=== PATIENT | male | born 1985 | race Caucasian/White ===

== ENCOUNTER → 2016-04-28 | Day surgery (SDC) | payer OTHER ==
[2016-04-17 11:42] VITALS: Ht 177.8 cm; Wt 77.3 kg
[~2016-04-28] VITALS: Ht 177.8 cm; Wt 77.3 kg
[~2016-04-28] MED LIST: ATROPINE SULFATE 0.1 MG/ML 5ML SYR IV PRN; BUPIVACAINE 0.5 % 5 MG/1 ML PF 10ML VIAL ONE; CEFAZOLIN 1000MG/55 ML D5W IV SCH; DEXAMETHASONE SOD INJ 4 MG/ML VIAL ONE; EpINEphrine INJ 1MG/ML AMP 1 MG/ML AMP ONE; FENTANYL CITRATE INJ 50 MCG/1 ML 2 ML VIAL IV PRN; FENTANYL CITRATE INJ 50 MCG/1 ML 2 ML VIAL ONE; HYDR-3983 PO; HYDR-5688 PO; HYDROCODONE/ACETAMOPHEN 5/325MG TAB PO PRN; KETOROLAC TROMETHAMINE 30 MG/ML VIAL IV. PRN; KETOROLAC TROMETHAMINE 30 MG/ML VIAL ONE; LABETALOL HCL IV 5 MG/ML 20ML IV ONE; LABETALOL HCL IV 5 MG/ML 20ML IV PRN; LACTATED RINGER'S 1000ML 1,000 ML IV SCH; LIDOCAINE HCL 2% 2 ML VIAL (20MG/ML) ONE; MELO15TA4 PO; MIDAZOLAM HCL 1 MG/ML 2ML VIAL ONE; NRN/300 PO; ONDANSETRON INJ 2 MG/ML 2 ML VIAL IV PRN; ONDANSETRON INJ 2 MG/ML 2 ML VIAL ONE; OXYCODONE/ACETAMINOPHEN 5-325 TAB PO PRN; PROPOFOL IV EMULSION 10 MG/ML 20 ML VIAL IV ONE; ROPIVACAINE 0.5% 5 MG/ML 30 ML VIAL ONE; SODIUM CHLORIDE 0.9% 1000ML 1,000 ML IV SCH
--- NOTE | 2016-04-28 10:15 | History & Physical Bridge - [place] ---
H&P Re-Evaluation Bridge Note: I have examined the patient, reviewed the History & Physical and in the interval since the performance of the History & Physical I have noted the following changes of clinical significance: No changes noted
--- NOTE | 2016-04-28 11:28 | [facility] Post Operative Brief Note ---
Immediate Operative Summary Operative Date Apr 28, 2016. Pre-Operative Diagnosis Medial meniscus tear left knee Post-Operative Diagnosis same as preop Procedure(s) Performed Left Knee Arthroscopy, Partial Medial Meniscectomy, Removal Plica Band Surgeon Dr. Childress Workers' Compensation Mediator Surgeon(s) CHARI Foley Estimated Blood Loss 0ml Findings ABOVE Specimens none per surgeon Anesthesia LMA Complication(s) None Disposition Recovery Room / PACU
--- NOTE | 2016-04-28 11:39 | Discharge Instructions-SurgCtr ---
Discharge Instructions Date of Service Apr 28, 2016. Visit Reason for Visit: Left Knee Medial Meniscus Tear Discharge Discharge Diagnosis / Problem: SAME ABOVE Discharge Goals Goal(s): Decrease discomfort, Improve function Activity Recommendations Activity Limitations: as noted below Lifting Limitations: until after follow-up appointment Exercise/Sports Limitations: until after follow-up appointment Weightbearing Status: Left weightbearing (as tolerated) Anesthesia . Post Anesthesia Instructions: If you have had General Anesthesia or IV Sedation: * Do not drive today. * Resume driving when surgeon permits. * Do not make important decisions or sign legal documents today. * Call surgeon for: 1. Temperature elevations greater than 101 degrees F. 2. Uncontrollable pain. 3. Excessive bleeding. 4. Persistent nausea and vomiting. 5. Medication intolerance (nausea, vomiting or rash). * For nausea and vomiting use only clear liquids such as: tea, soda, bouillon until nausea subsides, then gradually increase diet as tolerated. * If you have any concerns or questions, call your surgeon's office. If physician is unavailable and it is an emergency, call 911 or go to the nearest emergency room. . Instructions / Follow-Up Instructions / Follow-Up MEDICATIONS: * Resume previous medications unless instructed otherwise by your surgeon. * Always take pain medication on a full stomach or with food to avoid upset stomach. * Do not drink alcohol or drive while taking narcotics. * Ibuprofen or Tylenol may be taken if narcotic not needed. SPECIAL CARE INSTRUCTIONS: __ None _X_ Keep extremity elevated and iced x 48 hours; apply ice 20-30 minutes 8-10 times/day. May remove at night. __ Crutches __ May discard when able __ Brace/Post-op shoe __ 24 hrs/day __ Remove at night _X_ Dressing __ Maintain until seen in office, may shower with plastic over site _X_ Remove dressings in 24-48 hours and then may shower _X_ Cover incisions with band-aids after showering __ Do not remove steri-strips Call physician if chills or temperature rises above 102 degrees or pain unrelieved by prescribed pain medications. Office [phone] Diet Recommendations Home Diet: resume previous diet Procedures Procedures Performed: Left Knee Arthroscopy, Partial Medial Meniscectomy, Removal Plica Band Pending Studies Studies pending at discharge: no Medical Emergencies . Who to Call and When: Medical Emergencies: If at any time you feel your situation is an emergency, please call 911 immediately. . Non-Emergent Contact Non-Emergency issues call your: Primary Care Provider . . "Provider Documentation" section prepared by Edson Brennan.
--- NOTE | 2016-04-28 11:46 | Anesthesia Progress Nt - [facility] ---
Anesthesia Post Op Note Date & Time Apr 28, 2016 at 11:46 Vital Signs Pain Intensity: 0 Vital Signs Past 12 Hours Date Time Temp Pulse Resp B/P Pulse Ox O2 Delivery O2 Flow Rate FiO2 04/28/16 09:43 36.4 58 20 119/77 97 Room Air Notes Mental Status: alert / awake / arousable, participated in evaluation Pt Amnestic to Procedure: Yes Nausea / Vomiting: adequately controlled Pain: adequately controlled Airway Patency, RR, SpO2: stable & adequate BP & HR: stable & adequate Hydration State: stable & adequate Anesthetic Complications: no major complications apparent
--- NOTE | 2016-04-28 11:55 | OPERATIVE REPORT ---
DATE OF OPERATION: 04/28/2016 PREOPERATIVE DIAGNOSIS: Medial meniscus tear, left knee. POSTOPERATIVE DIAGNOSES: 1. Flap tear of the medial meniscus, left knee. 2. Large plica band suprapatellar joint. PROCEDURE: 1. Left knee arthroscopy, partial medial meniscectomy. 2. Removal of plica band. SURGEON: Dr. Childress. SAFETY AND SECURITY OFFICER: DESIREE Marsh. ANESTHESIOLOGIST: Dr. Cespedes. ANESTHESIA: LMA. DRAINS: None. COMPLICATIONS: None. CONDITION: The patient tolerated the procedure well and returned to the recovery room in apparent satisfactory condition. INDICATIONS FOR SURGERY: Jack is a 30-year-old male who has had increasing pain and discomfort in his left knee consistent with medial meniscus tear per examination, history and MRI. After elected to proceed with arthroscopy because of our findings. Procedure, expected outcomes and side effects, and risks were all explained in detail in the office. PROCEDURE: The patient was taken to the OR at which time he was placed supine on the operating table, put to sleep by anesthesia department. Examination of his left knee was performed. Ligamentous huang stable. Went ahead and prepped and draped in usual sterile fashion, began arthroscopic examination in the anteromedial and anterolateral portals. We found a flap tear of the posterior horn of the medial meniscus. We came in with upbiting scissors and full radius resector and trimmed back to a stable rim. The plane part of the meniscus was torn like, was just upper and lower part of the meniscus and was a tear in the middle of that and it would close. I did not want to turn all the way back to the capsule. I think his symptoms of the fragment were trimmed out. The articular surface in a great shape and the medial side was the ACL, lateral compartment and patellofemoral joint were all inspected were also normal except for a large plica band in the suprapatellar joint. This was removed with a shaver. The knee then was copiously irrigated. All cannulas were removed. Portals closed with 4-0 nylon sutures; 30 mL of ropivacaine, 10 mg of Toradol, and 1 mL of epinephrine was placed in the knee joint. Placed a sterile dressing of Xeroform, 4 x 4, ABD, Sof-Rol, and Shaheed bandage and returned back to recovery room in apparent satisfactory condition. SURGICAL FINDINGS: 1. Flap tear of the posterior horn of the medial meniscus. 2. Large plica band, suprapatellar joint. I attest to the content of the Intraoperative Record and any orders documented therein. Any exceptio ns are noted below.
[2016-04-28 12:36] VITALS: TEMP 36.8
[2016-04-28 12:56] VITALS: BP 116/76; PULSE 57; O2SAT 98
== END | disposition home or self-care (01) ==
LOC: X.SURG 09:12
PROVIDERS: ATTEND Orthopaedic Surgery
DX: M23.222 Derangement of posterior horn of medial meniscus due to old tear or injury, left knee (principal)